=== PATIENT | male | born 1940 | race Caucasian/White ===

== ENCOUNTER 2020-04-27 16:04 | Observation (INO) ==
[2020-04-27] MEDS ORDERED: NS 1000 ML 1,000 ML ONE ×2 (16:13→17:33)
[2020-04-27] MEDS ORDERED: NS 1000 ML 1,000 ML IV ONE ×3 (16:27→17:32)
[2020-04-27 16:45] LABS: BASOPHILS % (AUTO) 0.4 % (0.2-1.0); HEMATOCRIT 39.9 % (42.0-54.0); LYMPHOCYTES # (AUTO) 0.7 X10^3/uL (1.3-2.9); LYMPHOCYTES % (AUTO) 11.9 % (21.0-51.0); MEAN CORPUSCULAR HEMOGLOBIN 29.1 pg (27.0-34.0); MEAN CORPUSCULAR HGB CONC 35.1 g/dL (33.0-35.0); MEAN CORPUSCULAR VOLUME 82.9 fL (80.0-100.0); MEAN PLATELET VOLUME 9.9 fL (7.4-11.0); MONOCYTES # (AUTO) 0.6 x10^3/uL (0.3-0.8); MONOCYTES % (AUTO) 11.5 % (0.0-13.0); NEUTROPHILS # (AUTO) 4.2 x10^3/uL (2.2-4.8); NEUTROPHILS % (AUTO) 76.2 % (42.0-75.0); PLATELET COUNT 140 X10^3/uL (150.0-450.0); RED BLOOD COUNT 4.82 X10^6/uL (4.7-6.0); RED CELL DISTRIBUTION WIDTH 12.4 % (11.6-16.5); WHITE BLOOD COUNT 5.6 X10^3/uL (3.6-10.0)
[2020-04-27 16:48] LABS: ALBUMIN 3.3 g/dL (3.4-5.0); CALCIUM 9.2 mg/dL (8.5-10.1); CARBON DIOXIDE 26.2 mmol/L (21-32); COR CA(FOR HYPOALB) 9.8 mg/dL (8.5-10.1); CREATININE 2.02 mg/dL (0.70-1.30); TOTAL PROTEIN 7.3 g/dL (6.4-8.2)
--- NOTE | 2020-04-27 16:48 | RAD ---
HISTORYWeakness and feverSTUDYPortable AP chestCOMPARISONNoneFINDINGSThe heart is not significantly enlarged. Sternal wires are present. The left lung is clear. There is suggestion of an ill-defined infiltrate in the right lower lobe. No lobar consolidation, edema or pleural fluid demonstrated.IMPRESSIONSuspect right lower lobe infiltrate/localized pneumonia. Follow-up suggested.Electronically signed by: MICHELLE GARCIA (Apr 27, 2020 16:46:46)
[2020-04-27 17:03] LABS: CKMB % 2.5 % (<4); CREATINE KINASE 40 Units/L (39-308); CREATINE KINASE MB < 1.0 ng/mL (0-4.0); TROPONIN I 0.02 ng/mL (0-1.5)
[2020-04-27 19:16] LABS: ALBUMIN 2.7 g/dL (3.4-5.0); CALCIUM 8.4 mg/dL (8.5-10.1); CARBON DIOXIDE 26.9 mmol/L (21-32); COR CA(FOR HYPOALB) 9.4 mg/dL (8.5-10.1); CREATININE 1.88 mg/dL (0.70-1.30); TOTAL PROTEIN 6.1 g/dL (6.4-8.2)
--- NOTE | 2020-04-27 20:25 | DR.DIZZY ---
HPI Time seen Time Seen by Provider: 04/27/20 18:56 PCP Primary Care Physician: YAIMA HPI Comment HPI Comment: According to family pt was exposed to covid 19 . pos. Pt himself was tested yesterday results pending .Developed body ache dizziness and fatigue associated with diarrhea today with chills. Pt brought to ER for evaluation Complaint Chief Complaint:: PT C/O WEAKNESS, DIARRHEA, AND FEVER FOR THE PAST 3 DAYS. PT'S SON STATES HIS TESTED POSITIVE FOR COVID 19 YESTERDAY. PT WAS TESTED YESTERDAY AT OUR FACILITY. SON STATES PT WAS GIVEN TYLENOL 1000MG PO 2 HOURS SECURED ENTRANCE MONITOR FOR A TEMP.- COVID-19 Coronavirus risk:travel/contact w/high risk person: Yes Has patient experienced Coronavirus symptoms: Yes Coronavirus symptoms experienced: Fever Source History Provided: Patient Mode of Arrival Mode of Arrival: EMS Timing Onset of Chief Complaint: 04/24/20 Context Stroke Symptoms: None PMH PMH Past Medical History: Yes Past Medical History: Diabetes, Hypertension and Kidney Stones Past Surgical History: Yes Surgical History: Appendectomy, CABG/Valve Surgery and Lithotripsy Family History History of Family Medical Conditions: Yes Family Medical History: Diabetes Mellitus, Coronary Artery Disease and Heart Failure Social History Does any household member use tobacco: No Alcohol Use: None Do you use any recreational Drugs:: No Lives With: Family Lives Where: Home Travel Risk Coronavirus risk:travel/contact w/high risk person: Yes Has patient experienced Coronavirus symptoms: Yes Coronavirus symptoms experienced: Fever Infectious screening In the last 2 months have you had wt loss of >10#?: NO Have you had fever, night sweats or hemotysis?: No Have you traveled outside the country in the last 6 months?: No Isolation: Droplet ROS Review of Systems Constitutional: Chills and Fever Eyes: No Symptoms Reported ENTM: No Symptoms Reported Cardiovascular: No Symptoms Reported Gastrointestinal/Abdominal: Diarrhea Neurological: No Symptoms Reported, Weakness and Dizziness Musculoskeletal: No Symptoms Reported Integumentary: Dryness Psychiatric: No Symptoms Reported and Other (hard of hearing ) PE Vital Signs Vitals: Temperature 97.5 F Pulse Rate 64 Respiratory Rate 18 Blood Pressure [Right Arm] 143/64 Blood Pressure 140/65 O2 Sat by Pulse Oximetry 96 General Limitations: Other (hard of hearing ) General Appearance: Alert Head Head Exam: Normal Inspection, Atraumatic and Normocephalic Eyes Eye exam: Normal Appearance and PERRL ENT ENT Exam: Mucous Membranes Dry Neck Neck Exam: Full ROM Chest Chest Inspection: Normal Inspection Respiratory Respiratory Exam: Bilateral: Crackles Cardiovascular Cardiovascular Exam: +S1 and +S2 Abdominal Exam Abdominal Exam: Normal Bowel Sounds and Soft Extremeties Extremities Exam: Normal Inspection and Full ROM Back Back Exam: Normal Inspection Neurologic Neurological Exam: Alert and Oriented X3 Skin Skin Exam: Warm MDM Differential Diagnosis Differential Diagnosis: Other (suspected covid19,dizziness,dehydration,hard of hearing ,chills and fever ,History of CAD) COURSE Treatment Treatment: labs,EKG, cxr, labs ROR Labs Reviewed Laboratory Results Reviewed?: Yes Result Diagrams: 04/27/20 16:14 04/27/20 18:29 Laboratory: WBC 5.6 X10^3/uL (3.6-10.0) 04/27/20 16:14 RBC 4.82 X10^6/uL (4.7-6.0) 04/27/20 16:14 Hgb 14.0 g/dL (13.5-18.0) 04/27/20 16:14 Hct 39.9 % (42.0-54.0) L 04/27/20 16:14 MCV 82.9 fL (80.0-100.0) 04/27/20 16:14 MCH 29.1 pg (27.0-34.0) 04/27/20 16:14 MCHC 35.1 g/dL (33.0-35.0) H 04/27/20 16:14 RDW 12.4 % (11.6-16.5) 04/27/20 16:14 Plt Count 140 X10^3/uL (150.0-450.0) L 04/27/20 16:14 MPV 9.9 fL (7.4-11.0) 04/27/20 16:14 Neut % (Auto) 76.2 % (42.0-75.0) H 04/27/20 16:14 Lymph % (Auto) 11.9 % (21.0-51.0) L 04/27/20 16:14 [place] % (Auto) 11.5 % (0.0-13.0) 04/27/20 16:14 Eos % (Auto) 0.0 % (0.9-2.9) L 04/27/20 16:14 Baso % (Auto) 0.4 % (0.2-1.0) 04/27/20 16:14 Neut # (Auto) 4.2 x10^3/uL (2.2-4.8) 04/27/20 16:14 Lymph # (Auto) 0.7 X10^3/uL (1.3-2.9) L 04/27/20 16:14 [place] # (Auto) 0.6 x10^3/uL (0.3-0.8) 04/27/20 16:14 Eos # (Auto) 0.0 x10^3/uL (0.0-0.2) 04/27/20 16:14 Baso # (Auto) 0.0 X10^3/uL (0.0-0.1) 04/27/20 16:14 Absolute Nucleated RBC 0.1 /100WBC 04/27/20 16:14 Sodium 130 mmol/L (136-145) L 04/27/20 18:29 Corrected Sodium 132 mmol/L (136-145) L 04/27/20 18:29 Potassium 3.2 mmol/L (3.5-5.1) L 04/27/20 18:29 Chloride 94 mmol/L (98-107) L 04/27/20 18:29 Carbon Dioxide 26.9 mmol/L (21-32) 04/27/20 18:29 BUN 30 mg/dL (7-18) H 04/27/20 18:29 Creatinine 1.88 mg/dL (0.70-1.30) H 04/27/20 18:29 Est GFR (MDRD) Af Amer 45 (>60) L 04/27/20 18:29 Est GFR (MDRD) Non-Af 37 (>60) L 04/27/20 18:29 Glucose 199 mg/dL (65-99) H 04/27/20 18:29 Lactic Acid 1.9 mmol/L (0.4-2.0) 04/27/20 18:29 Calcium 8.4 mg/dL (8.5-10.1) L 04/27/20 18:29 Corrected Calcium 9.4 mg/dL (8.5-10.1) 04/27/20 18:29 Ferritin 621 ng/mL (26-388) H 04/27/20 16:14 Total Bilirubin 0.70 mg/dL (0.2-1.0) 04/27/20 18:29 AST 30 Units/L (15-37) 04/27/20 18:29 ALT 26 Units/L (12-78) 04/27/20 18:29 Alkaline Phosphatase 59 Units/L (46-116) 04/27/20 18:29 Creatine Kinase 40 Units/L (39-308) 04/27/20 16:14 CK-MB (CK-2) < 1.0 ng/mL (0-4.0) 04/27/20 16:14 CK/CKMB % Calc 2.5 % (<4) 04/27/20 16:14 Troponin I 0.02 ng/mL (0-1.5) 04/27/20 16:14 C-Reactive Protein 72.20 mg/L (0-3.0) H 04/27/20 16:14 Total Protein 6.1 g/dL (6.4-8.2) L 04/27/20 18:29 Albumin 2.7 g/dL (3.4-5.0) L 04/27/20 18:29 Globulin 3.4 g/dL (2.5-4.5) 04/27/20 18:29 Albumin/Globulin Ratio 0.8 Ratio (1.1-2.1) L 04/27/20 18:29 Amylase 74 Units/L (25-115) 04/27/20 16:14 Lipase 200 Units/L (73-393) 04/27/20 16:14 Other Results Comments: hyponatremia, acute renal failure ,pneumonia most likely due to covid ,left bundle branch block cardiac enzymes neg Opioid Opioid Risk Tool Age ([place] if 16-45): No History of Preadolescent Sexual Abuse: No Total: 0 Total Score Risk Category: Low Risk Copyright: Con BERRY predicting aberrant behaviors Diagnosis Discharge Problem: Acute dehydration, Acute hyponatremia, Acute hypokalemia, Acute renal failure (ARF), Suspected COVID-19 virus infection, Pneumonia, Hard of hearing
[2020-04-27] MEDS ORDERED: ZINC SULFATE PO SCH (21:00)
[2020-04-27] MEDS ORDERED: REMDESIVIR (INVESTIGATIONAL DRUG GS-5734) 200 MG in NS 250 ML IV 250 ML IV SCH (21:00)
[2020-04-27] MEDS ORDERED: ASCORBIC ACID INJ MULTI-DOSE VIAL 1,500 MG in NS 100 ML IV 100 ML IV SCH (21:00)
[2020-04-27] MEDS ORDERED: NS + KCL 20 MEQ/L 1,000 ML IV SCH (21:00)
[2020-04-27] MEDS ORDERED: LOVENOX INJ 30 MG SYR SC SCH (21:00)
[2020-04-27] MEDS ORDERED: PLAQUENIL PO SCH (21:00)
[2020-04-27] MEDS ORDERED: LOVENOX INJ 30 MG SYR SC ONE (21:34)
[2020-04-28 01:09] VITALS: BMI 25.9
[2020-04-28 05:39] LABS: BASOPHILS % (AUTO) 0.4 % (0.2-1.0); EOSINOPHILS % (AUTO) 0.3 % (0.9-2.9); HEMOGLOBIN 12.7 g/dL (13.5-18.0); LYMPHOCYTES # (AUTO) 0.6 X10^3/uL (1.3-2.9); LYMPHOCYTES % (AUTO) 23.1 % (21.0-51.0); MEAN CORPUSCULAR HEMOGLOBIN 29.6 pg (27.0-34.0); MEAN CORPUSCULAR HGB CONC 36.3 g/dL (33.0-35.0); MEAN CORPUSCULAR VOLUME 81.7 fL (80.0-100.0); MEAN PLATELET VOLUME 10.1 fL (7.4-11.0); MONOCYTES # (AUTO) 0.3 x10^3/uL (0.3-0.8); MONOCYTES % (AUTO) 12.8 % (0.0-13.0); NEUTROPHILS # (AUTO) 1.7 x10^3/uL (2.2-4.8); NEUTROPHILS % (AUTO) 63.4 % (42.0-75.0); PLATELET COUNT 109 X10^3/uL (150.0-450.0); RED BLOOD COUNT 4.28 X10^6/uL (4.7-6.0); RED CELL DISTRIBUTION WIDTH 12.5 % (11.6-16.5); WHITE BLOOD COUNT 2.6 X10^3/uL (3.6-10.0)
[2020-04-28 05:45] LABS: ALANINE AMINOTRANSFERASE 24 Units/L (12-78); ALBUMIN 2.8 g/dL (3.4-5.0); ALKALINE PHOSPHATASE 58 Units/L (46-116); ASPARTATE AMINO TRANSFERASE 26 Units/L (15-37); BLOOD UREA NITROGEN 29 mg/dL (7-18); CALCIUM 8.3 mg/dL (8.5-10.1); CARBON DIOXIDE 26.7 mmol/L (21-32); CHLORIDE 94 mmol/L (98-107); COR CA(FOR HYPOALB) 9.3 mg/dL (8.5-10.1); COR NA(FOR HYPERGLY) 132 mmol/L (136-145); SODIUM 131 mmol/L (136-145); TOTAL PROTEIN 6.4 g/dL (6.4-8.2); TROPONIN I < 0.02 ng/mL (0-1.5); eGFR NON BLACK RACES 44 (>60)
[2020-04-28] MEDS ORDERED: VITAMIN A PO SCH (09:00)
[2020-04-28] MEDS ORDERED: VITAMIN D (1.25MG) PO SCH (09:00)
[2020-04-28] MEDS ORDERED: DECADRON TAB PO SCH (09:00)
--- NOTE | 2020-04-28 09:10 | DR.H&P ---
H&P History & Physical for Day of: H&P Date: 04/28/20 Chief Complaint Chief Complaint: Weakness, Diarrhea, Allergies Allergies Allergy/AdvReac Type Severity Reaction Status Date / Time No Known Drug Allergies Allergy Verified 05/22/19 00:08 History of Present Illness History of Present Illness: Pt is a 80 yo m pmhx HTN, DMT2, presenting after having fatigue, dizziness, body aches, and diarrhea for the past 2 days. He stated he was exposed to his that recently tested positive for COVID19. He has a test pending from [facility] that was collected on 04/26. Labs/imaging: Wbc 2.6, Hgb 12.7, Plt 109, Na 131, K 3.2, Cr 1.8>1.6, Gluc 136, Magnesium 1.4, CRP 59, CXR: Suspect right lower lobe infiltrate/localized pneumonia. Pt with multiple electrolyte abnormalities, will replete per protocol. He has UMA, continue IVF and hold nephrotoxic agents. Pneumonia seen on CXR, start on antibiotics, Rocephin+ Azithromycin. Will start on immune support supplements, IV solumedrol 80mg q12, and restart home medications. Continue to monitor and follow up labs/imaging in the morning. Past Medical History Past Medical History: Diabetes, Hypertension and Kidney Stones Past Surgical History Surgical History: Appendectomy and CABG/Valve Surgery Family History Family Medical History: Diabetes Mellitus, Coronary Artery Disease and Heart Failure Social History Does patient currently use any type of tobacco product: No Does any household member use tobacco: No Alcohol Use: None Medications Home Medications: No Known Drug Allergies Allergy (Verified 05/22/19 00:08) CONTINUE taking the following medications carvedilol 25 mg PO BID 04/27/20 [History] clopidogrel 75 mg PO DAILY 04/27/20 [History] lisinopril 10 mg PO DAILY 04/27/20 [History] omeprazole 20 mg PO DAILY 04/27/20 [History] potassium chloride 10 meq PO HS 04/27/20 [History] pravastatin 80 mg PO DAILY 04/27/20 [History] Labs Result Diagrams: 04/28/20 04:50 04/28/20 04:50 Labs: Laboratory WBC 2.6 X10^3/uL (3.6-10.0) L 04/28/20 04:50 RBC 4.28 X10^6/uL (4.7-6.0) L 04/28/20 04:50 Hgb 12.7 g/dL (13.5-18.0) L 04/28/20 04:50 Hct 35.0 % (42.0-54.0) L 04/28/20 04:50 MCV 81.7 fL (80.0-100.0) 04/28/20 04:50 MCH 29.6 pg (27.0-34.0) 04/28/20 04:50 MCHC 36.3 g/dL (33.0-35.0) H 04/28/20 04:50 RDW 12.5 % (11.6-16.5) 04/28/20 04:50 Plt Count 109 X10^3/uL (150.0-450.0) L 04/28/20 04:50 MPV 10.1 fL (7.4-11.0) 04/28/20 04:50 Neut % (Auto) 63.4 % (42.0-75.0) 04/28/20 04:50 Lymph % (Auto) 23.1 % (21.0-51.0) 04/28/20 04:50 [place] % (Auto) 12.8 % (0.0-13.0) 04/28/20 04:50 Eos % (Auto) 0.3 % (0.9-2.9) L 04/28/20 04:50 Baso % (Auto) 0.4 % (0.2-1.0) 04/28/20 04:50 Neut # (Auto) 1.7 x10^3/uL (2.2-4.8) L 04/28/20 04:50 Lymph # (Auto) 0.6 X10^3/uL (1.3-2.9) L 04/28/20 04:50 [place] # (Auto) 0.3 x10^3/uL (0.3-0.8) 04/28/20 04:50 Eos # (Auto) 0.0 x10^3/uL (0.0-0.2) 04/28/20 04:50 Baso # (Auto) 0.0 X10^3/uL (0.0-0.1) 04/28/20 04:50 Absolute Nucleated RBC 1.6 /100WBC 04/28/20 04:50 Sodium 131 mmol/L (136-145) L 04/28/20 04:50 Corrected Sodium 132 mmol/L (136-145) L 04/28/20 04:50 Potassium 3.2 mmol/L (3.5-5.1) L 04/28/20 04:50 Chloride 94 mmol/L (98-107) L 04/28/20 04:50 Carbon Dioxide 26.7 mmol/L (21-32) 04/28/20 04:50 BUN 29 mg/dL (7-18) H 04/28/20 04:50 Creatinine 1.60 mg/dL (0.70-1.30) H 04/28/20 04:50 Est GFR (MDRD) Af Amer 54 (>60) L 04/28/20 04:50 Est GFR (MDRD) Non-Af 44 (>60) L 04/28/20 04:50 Glucose 136 mg/dL (65-99) H 04/28/20 04:50 Lactic Acid 1.9 mmol/L (0.4-2.0) 04/27/20 18:29 Calcium 8.3 mg/dL (8.5-10.1) L 04/28/20 04:50 Corrected Calcium 9.3 mg/dL (8.5-10.1) 04/28/20 04:50 Ferritin 621 ng/mL (26-388) H 04/27/20 16:14 Total Bilirubin 0.60 mg/dL (0.2-1.0) 04/28/20 04:50 AST 26 Units/L (15-37) 04/28/20 04:50 ALT 24 Units/L (12-78) 04/28/20 04:50 Alkaline Phosphatase 58 Units/L (46-116) 04/28/20 04:50 Creatine Kinase 40 Units/L (39-308) 04/27/20 16:14 CK-MB (CK-2) < 1.0 ng/mL (0-4.0) 04/27/20 16:14 CK/CKMB % Calc 2.5 % (<4) 04/27/20 16:14 Troponin I < 0.02 ng/mL (0-1.5) 04/28/20 04:50 C-Reactive Protein 72.20 mg/L (0-3.0) H 04/27/20 16:14 Total Protein 6.4 g/dL (6.4-8.2) 04/28/20 04:50 Albumin 2.8 g/dL (3.4-5.0) L 04/28/20 04:50 Globulin 3.6 g/dL (2.5-4.5) 04/28/20 04:50 Albumin/Globulin Ratio 0.8 Ratio (1.1-2.1) L 04/28/20 04:50 Amylase 74 Units/L (25-115) 04/27/20 16:14 Lipase 200 Units/L (73-393) 04/27/20 16:14 Review of Systems Constitutional: See HPI and Weakness Eyes: No Symptoms Reported ENT: No Symptoms Reported Respiratory: Cough and Sputum Cardiovascular: No Symptoms Reported Gastrointestinal: Nausea and Diarrhea Genitourinary: No Symptoms Reported Musculoskeletal: No Symptoms Reported Skin: No Symptoms Reported Neurological: No Symptoms Reported Physical Exam Vital Signs: Temperature 98.9 F Pulse Rate [Right] 84 Pulse Rate 66 Respiratory Rate 16 Blood Pressure [Right Arm] 165/77 Blood Pressure 141/68 O2 Sat by Pulse Oximetry 95 Oriented: Normal Eyes: Normal Ear: Normal Nose: Normal Respiratory: Diminished Throughout and RLL Rales Cardiovascular: Normal : Normal Auscultation: Bowel Sounds: Normal Palpation: Normal Tenderness: Normal Skin: Normal Musculoskeletal: Normal Psychiatric: Normal Mood Description: Calm Speech Pattern: Clear Assessment/Plan (1) Pneumonia: Status: Acute Plan: COVID19 pending Rocephin+Azithromycin (2) Acute dehydration: Status: Acute Plan: IVF (3) Acute hyponatremia: Status: Acute (4) Acute hypokalemia: Status: Acute (5) Acute renal failure (ARF): Status: Acute Plan: Hold nephrotoxic medications. IVF, trend creatinine Review H&P Reviewed: Yes Patient was examined?: Yes
[2020-04-28] MEDS ORDERED: POTASSIUM CHL 60 MEQ/NS 0.45% 500 ML IV PRN (10:51)
[2020-04-28] MEDS ORDERED: POTASSIUM CHLORIDE LIQ 20 MEQ UDC PO PRN (10:51)
[2020-04-28] MEDS ORDERED: K-DUR TAB 20 MEQ PO PRN (10:51)
[2020-04-28] MEDS ORDERED: KLOR-CON PO PRN (10:51)
[2020-04-28] MEDS ORDERED: K-RIDER 10 MEQ/NS 100 ML 10 MEQ/100 ML BAG IV PRN (10:51)
[2020-04-28] MEDS ORDERED: POTASSIUM CHL 40 MEQ/NS 0.45% 500 ML IV PRN (10:51)
[2020-04-28] MEDS ORDERED: MICRO K EXTEN CAP 10 MEQ PO PRN (10:51)
[2020-04-28] MEDS ORDERED: ZESTRIL TAB 10 MG PO SCH (11:00)
[2020-04-28] MEDS: NS 1000 ML 1,000 ML IV SCH (11:08)
[2020-04-28] MEDS: ROCEPHIN VIAL 1 GRAM 1 G in NS 100 ML IV + SPIKE MINIBAG* 100 ML IV SCH (11:08)
[2020-04-28] MEDS: ZITHROMAX INJ 500 MG VIAL 500 MG in D5W 250 ML IV 250 ML IV SCH (11:08)
[2020-04-28] MEDS: LOVENOX INJ 40 MG SYR SC SCH (11:09)
[2020-04-28] MEDS: TAB-A-VITE PO SCH (11:10)
[2020-04-28] MEDS: VITAMIN C PO SCH (11:10)
[2020-04-28] MEDS: VITAMIN D3 125 mcg (5,000 UNITS) PO SCH (11:11)
[2020-04-28] MEDS: ZINC SULFATE PO SCH (11:11)
[2020-04-28] MEDS: PROSCAR PO SCH (11:11)
[2020-04-28] MEDS: COREG TAB 25 MG PO SCH ×2 (11:12→21:46)
[2020-04-28] MEDS: PriLOSEC PO SCH (11:12)
[2020-04-28] MEDS: PLAVIX PO SCH (11:12)
[2020-04-28] MEDS ORDERED: CHLORTHALIDONE PO SCH (11:30)
[2020-04-28] MEDS: SOLU-Medrol 125 MG VIAL IVP SCH ×2 (14:15→23:40)
[2020-04-28] MEDS ORDERED: RESTORIL CAP 15 MG PO ONE (20:16)
[2020-04-28] MEDS ORDERED: HumuLIN R ONE (21:06)
[2020-04-28] MEDS: RESTORIL CAP 15 MG PO PRN (21:46)
[2020-04-28] MEDS: MICRO K EXTEN CAP 10 MEQ PO SCH (21:47)
[2020-04-28] MEDS: FLOMAX PO SCH (21:47)
[2020-04-28] MEDS: HumuLIN R SC PRN (22:35)
[2020-04-29] MEDS: NS 1000 ML 1,000 ML IV SCH ×2 (02:23→15:35)
[2020-04-29] MEDS: HumuLIN R SC PRN ×4 (05:51→21:14)
[2020-04-29 06:08] LABS: ALBUMIN 2.8 g/dL (3.4-5.0); CALCIUM 8.6 mg/dL (8.5-10.1); CARBON DIOXIDE 27.4 mmol/L (21-32); COR CA(FOR HYPOALB) 9.6 mg/dL (8.5-10.1); CREATININE 1.51 mg/dL (0.70-1.30); MAGNESIUM 1.5 mg/dL (1.7-2.9); TOTAL PROTEIN 6.5 g/dL (6.4-8.2)
--- NOTE | 2020-04-29 06:13 | RAD ---
HISTORYPNEUMONIA FOLLOW-UP, ACUTE RENAL FAILURE, COVID +STUDYCHEST, 1 [id number] view of the chestFINDINGSPost median sternotomy. Cardiac and mediastinal contours appear stable. Interval clearing of previously seen right lower lobe airspace disease. No pleural effusion or pneumothorax.IMPRESSIONInterval clearing of right lower lobe airspace disease.Electronically signed by: Marcelo Peraza (Apr 29, 2020 06:12:11)
[2020-04-29 06:17] LABS: BASOPHILS % (AUTO) 0.2 % (0.2-1.0); HEMATOCRIT 36.3 % (42.0-54.0); HEMOGLOBIN 12.8 g/dL (13.5-18.0); LYMPHOCYTES # (AUTO) 0.4 X10^3/uL (1.3-2.9); LYMPHOCYTES % (AUTO) 15.5 % (21.0-51.0); MEAN CORPUSCULAR HEMOGLOBIN 29.6 pg (27.0-34.0); MEAN CORPUSCULAR HGB CONC 35.2 g/dL (33.0-35.0); MEAN CORPUSCULAR VOLUME 84.1 fL (80.0-100.0); MEAN PLATELET VOLUME 10.1 fL (7.4-11.0); MONOCYTES # (AUTO) 0.2 x10^3/uL (0.3-0.8); MONOCYTES % (AUTO) 6.1 % (0.0-13.0); NEUTROPHILS % (AUTO) 78.2 % (42.0-75.0); PLATELET COUNT 119 X10^3/uL (150.0-450.0); RED BLOOD COUNT 4.32 X10^6/uL (4.7-6.0); RED CELL DISTRIBUTION WIDTH 12.4 % (11.6-16.5); WHITE BLOOD COUNT 2.6 X10^3/uL (3.6-10.0)
[2020-04-29] MEDS ORDERED: VITAMIN D3 125 mcg (5,000 UNITS) PO SCH (09:00)
[2020-04-29] MEDS ORDERED: VITAMIN A PO SCH (09:00)
[2020-04-29] MEDS: PREDNISONE TAB 20 MG PO SCH (09:39)
[2020-04-29] MEDS: ZITHROMAX INJ 500 MG VIAL 500 MG in D5W 250 ML IV 250 ML IV SCH (09:40)
[2020-04-29] MEDS: COREG TAB 25 MG PO SCH ×2 (09:41→21:04)
[2020-04-29] MEDS: PriLOSEC PO SCH (09:41)
[2020-04-29] MEDS: VITAMIN D3 125 mcg (5,000 UNITS) PO SCH (09:41)
[2020-04-29] MEDS: TAB-A-VITE PO SCH (09:42)
[2020-04-29] MEDS: VITAMIN C PO SCH (09:42)
[2020-04-29] MEDS: PROSCAR PO SCH (09:42)
[2020-04-29] MEDS: LOVENOX INJ 40 MG SYR SC SCH (09:43)
[2020-04-29] MEDS: ROCEPHIN VIAL 1 GRAM 1 G in NS 100 ML IV + SPIKE MINIBAG* 100 ML IV SCH (09:43)
[2020-04-29] MEDS: PLAVIX PO SCH (09:43)
[2020-04-29] MEDS: ZINC SULFATE PO SCH (09:47)
[2020-04-29] MEDS: PRAVACHOL PO SCH (10:00)
[2020-04-29] MEDS: MAGNESIUM SULFATE 1 GRAM/100 mL PREMIX 1 GM/100 ML BAG IV PRN ×2 (14:25→15:45)
[2020-04-29 15:09] LABS: CARBON DIOXIDE 24.4 mmol/L (21-32); CREATININE 1.49 mg/dL (0.70-1.30); MAGNESIUM 1.8 mg/dL (1.7-2.9)
--- NOTE | 2020-04-29 15:49 | PCM.PROG ---
Progress Note Progress Note for Day of Date of Exam: 04/29/20 Subjective Subjective: Pt is a 80 yo m pmhx HTN, DMT2, admitted for pneumonia(COVID19 pending). This morning he is feeling better. Labs/imaging: Wbc 2.6, Hgb 12.8, Plt 119, Na 129, K 3.3, Cr 1.6>1.49, Gluc 326, Magnesium 1.5, CXR: Interval clearing of right lower lobe airspace disease. Improvement in CXR and renal function, will increase IVF NS to 125ml/h, hold nephrotoxic agents. Replete magnesium and potassium. Continue antibiotics, Rocephin+ Azithromycin, immune support supplements, change IV solumedrol to oral prednisone 40mg. Continue to monitor and follow up labs/imaging in the morning. Past Medical Family Social History Past Med/Fam/Surg Hx: No changes since H&P Allergies: Allergies No Known Drug Allergies Allergy (Verified 05/22/19 00:08) Vital Signs and I&O's Vital Signs: Temperature 97.6 F Pulse Rate [Right] 68 Pulse Rate 66 Respiratory Rate 16 Blood Pressure [Right Arm] 165/74 Blood Pressure 141/68 O2 Sat by Pulse Oximetry 95 Intake and Output: Intake & Output 04/26/20 04/27/20 04/28/20 04/29/20 23:59 23:59 23:59 23:59 Intake Total 2650 / 2650 350 / 350 Output Total 225 / 225 550 / 550 Balance 2425 / 2425 -200 / -200 Physical Exam Oriented: Normal Eyes: Normal Ear: Normal Nose: Normal Respiratory: Right and Rales Cardiovascular: Normal : Normal Auscultation: Bowel Sounds: Normal Tenderness: Normal Skin: Normal Musculoskeletal: Normal Psychiatric: Normal Mood Description: Calm Speech Pattern: Clear and Appropriate Laboratory and Diagnostics Result Diagrams: 04/29/20 04:54 04/29/20 14:50 Labs: 04/27/20 14:14 Blood Blood Culture - Preliminary 04/27/20 18:29 Blood Blood Culture - Preliminary Laboratory WBC 2.6 X10^3/uL (3.6-10.0) L 04/29/20 04:54 RBC 4.32 X10^6/uL (4.7-6.0) L 04/29/20 04:54 Hgb 12.8 g/dL (13.5-18.0) L 04/29/20 04:54 Hct 36.3 % (42.0-54.0) L 04/29/20 04:54 MCV 84.1 fL (80.0-100.0) 04/29/20 04:54 MCH 29.6 pg (27.0-34.0) 04/29/20 04:54 MCHC 35.2 g/dL (33.0-35.0) H 04/29/20 04:54 RDW 12.4 % (11.6-16.5) 04/29/20 04:54 Plt Count 119 X10^3/uL (150.0-450.0) L 04/29/20 04:54 MPV 10.1 fL (7.4-11.0) 04/29/20 04:54 Neut % (Auto) 78.2 % (42.0-75.0) H 04/29/20 04:54 Lymph % (Auto) 15.5 % (21.0-51.0) L 04/29/20 04:54 [place] % (Auto) 6.1 % (0.0-13.0) 04/29/20 04:54 Eos % (Auto) 0.0 % (0.9-2.9) L 04/29/20 04:54 Baso % (Auto) 0.2 % (0.2-1.0) 04/29/20 04:54 Neut # (Auto) 2.0 x10^3/uL (2.2-4.8) L 04/29/20 04:54 Lymph # (Auto) 0.4 X10^3/uL (1.3-2.9) L 04/29/20 04:54 [place] # (Auto) 0.2 x10^3/uL (0.3-0.8) L 04/29/20 04:54 Eos # (Auto) 0.0 x10^3/uL (0.0-0.2) 04/29/20 04:54 Baso # (Auto) 0.0 X10^3/uL (0.0-0.1) 04/29/20 04:54 Absolute Nucleated RBC 0.2 /100WBC 04/29/20 04:54 Sodium 129 mmol/L (136-145) L 04/29/20 14:50 Corrected Sodium 134 mmol/L (136-145) L 04/29/20 14:50 Potassium 3.3 mmol/L (3.5-5.1) L 04/29/20 14:50 Chloride 94 mmol/L (98-107) L 04/29/20 14:50 Carbon Dioxide 24.4 mmol/L (21-32) 04/29/20 14:50 BUN 28 mg/dL (7-18) H 04/29/20 14:50 Creatinine 1.49 mg/dL (0.70-1.30) H 04/29/20 14:50 Est GFR (MDRD) Af Amer 58 (>60) L 04/29/20 14:50 Est GFR (MDRD) Non-Af 48 (>60) L 04/29/20 14:50 Glucose 326 mg/dL (65-99) H 04/29/20 14:50 Lactic Acid 1.9 mmol/L (0.4-2.0) 04/27/20 18:29 Calcium 9.0 mg/dL (8.5-10.1) 04/29/20 14:50 Corrected Calcium 9.6 mg/dL (8.5-10.1) 04/29/20 04:54 Magnesium 1.8 mg/dL (1.7-2.9) 04/29/20 14:50 Ferritin 621 ng/mL (26-388) H 04/27/20 16:14 Total Bilirubin 0.60 mg/dL (0.2-1.0) 04/29/20 04:54 AST 26 Units/L (15-37) 04/29/20 04:54 ALT 21 Units/L (12-78) 04/29/20 04:54 Alkaline Phosphatase 54 Units/L (46-116) 04/29/20 04:54 Creatine Kinase 40 Units/L (39-308) 04/27/20 16:14 CK-MB (CK-2) < 1.0 ng/mL (0-4.0) 04/27/20 16:14 CK/CKMB % Calc 2.5 % (<4) 04/27/20 16:14 Troponin I < 0.02 ng/mL (0-1.5) 04/28/20 04:50 C-Reactive Protein 60.30 mg/L (0-3.0) H 04/29/20 04:54 Total Protein 6.5 g/dL (6.4-8.2) 04/29/20 04:54 Albumin 2.8 g/dL (3.4-5.0) L 04/29/20 04:54 Globulin 3.7 g/dL (2.5-4.5) 04/29/20 04:54 Albumin/Globulin Ratio 0.8 Ratio (1.1-2.1) L 04/29/20 04:54 Amylase 74 Units/L (25-115) 04/27/20 16:14 Lipase 200 Units/L (73-393) 04/27/20 16:14 Plan (1) Pneumonia: Status: Acute Plan: COVID19 pending Rocephin+Azithromycin (2) Acute dehydration: Status: Acute Plan: IVF (3) Acute hyponatremia: Status: Acute (4) Acute hypokalemia: Status: Acute (5) Acute renal failure (ARF): Status: Acute Plan: Hold nephrotoxic medications. IVF, trend creatinine
[2020-04-29] MEDS: RESTORIL CAP 15 MG PO PRN (20:55)
[2020-04-29] MEDS: FLOMAX PO SCH (21:04)
[2020-04-29] MEDS: MICRO K EXTEN CAP 10 MEQ PO SCH (21:05)
[2020-04-30] MEDS ORDERED: VALIUM PO PRN (03:44)
[2020-04-30] MEDS ORDERED: VALIUM ONE (03:47)
[2020-04-30] MEDS: NS 1000 ML 1,000 ML IV SCH (05:42)
[2020-04-30 06:01] LABS: BASOPHILS % (AUTO) 0.1 % (0.2-1.0); HEMATOCRIT 39.2 % (42.0-54.0); HEMOGLOBIN 13.8 g/dL (13.5-18.0); LYMPHOCYTES # (AUTO) 0.3 X10^3/uL (1.3-2.9); LYMPHOCYTES % (AUTO) 4.4 % (21.0-51.0); MEAN CORPUSCULAR HEMOGLOBIN 30.4 pg (27.0-34.0); MEAN CORPUSCULAR HGB CONC 35.2 g/dL (33.0-35.0); MEAN CORPUSCULAR VOLUME 86.3 fL (80.0-100.0); MEAN PLATELET VOLUME 10.2 fL (7.4-11.0); MONOCYTES # (AUTO) 0.4 x10^3/uL (0.3-0.8); MONOCYTES % (AUTO) 6.2 % (0.0-13.0); NEUTROPHILS # (AUTO) 6.4 x10^3/uL (2.2-4.8); NEUTROPHILS % (AUTO) 89.3 % (42.0-75.0); PLATELET COUNT 158 X10^3/uL (150.0-450.0); RED BLOOD COUNT 4.54 X10^6/uL (4.7-6.0); RED CELL DISTRIBUTION WIDTH 12.8 % (11.6-16.5); WHITE BLOOD COUNT 7.2 X10^3/uL (3.6-10.0)
[2020-04-30 06:25] LABS: ALANINE AMINOTRANSFERASE 24 Units/L (12-78); ALBUMIN 3.2 g/dL (3.4-5.0); ALKALINE PHOSPHATASE 73 Units/L (46-116); ASPARTATE AMINO TRANSFERASE 24 Units/L (15-37); BLOOD UREA NITROGEN 26 mg/dL (7-18); CARBON DIOXIDE 25.5 mmol/L (21-32); CHLORIDE 96 mmol/L (98-107); COR CA(FOR HYPOALB) 9.6 mg/dL (8.5-10.1); COR NA(FOR HYPERGLY) 136 mmol/L (136-145); CREATININE 1.36 mg/dL (0.70-1.30); SODIUM 132 mmol/L (136-145); TOTAL PROTEIN 7.4 g/dL (6.4-8.2); eGFR NON BLACK RACES 54 (>60)
--- NOTE | 2020-04-30 08:14 | W.DIS.FURT ---
Summary of Discharge Discharge Summary of Date Date of Exam: 04/30/20 Admission Date Date of Admission: 04/27/20 Admission Diagnosis Hospital Course: Pt is a 80 yo m pmhx HTN, DMT2, admitted for pneumonia(COVID19 negative on 04/26), dehydration, acute renal failure. He received IVF, nephrotoxic medications were held, and his renal function improved, Cr trending down from 2.02>1.36. Electrolyte abnormalities were corrected. Labs/imaging: Wbc 7.2, Hgb 13.8, Plt 158, Na 136, K 3.7, Cr 1.6>1.49, Gluc 271, Pneumonia seen CXR also improved, showing interval clearing of right lower lobe airspace disease after receiving antibiotics, Rocephin+ Azithromycin. On day of discharge he is sitting in recliner comfortably, w/ labs normalized, and not requiring any supplemental O2. He was instructed to complete augmentin course and follow up w/ pcp in 3-5 days. Vital Signs: Vital Signs (72 hours) 04/27/20 16:05 04/27/20 16:27 04/27/20 16:30 Temperature 97.5 F L Pulse Rate 73 64 64 Pulse Rate [Right] Respiratory Rate 20 16 16 Blood Pressure 86/54 Blood Pressure [Right Arm] O2 Sat by Pulse Oximetry 96 94 L 93 L 04/27/20 16:45 04/27/20 17:00 04/27/20 17:01 Temperature Pulse Rate 62 64 63 Pulse Rate [Right] Respiratory Rate 21 20 19 Blood Pressure 119/58 142/63 Blood Pressure [Right Arm] O2 Sat by Pulse Oximetry 95 95 96 04/27/20 17:15 04/27/20 17:30 04/27/20 17:45 Temperature Pulse Rate 62 64 63 Pulse Rate [Right] Respiratory Rate 19 18 19 Blood Pressure 125/58 115/56 126/61 Blood Pressure [Right Arm] O2 Sat by Pulse Oximetry 94 L 92 L 96 04/27/20 18:00 04/27/20 18:15 04/27/20 18:30 Temperature Pulse Rate 66 64 66 Pulse Rate [Right] Respiratory Rate 21 18 18 Blood Pressure 128/63 137/63 141/66 Blood Pressure [Right Arm] O2 Sat by Pulse Oximetry 04/27/20 18:45 04/27/20 19:00 04/27/20 19:15 Temperature Pulse Rate 66 65 64 Pulse Rate [Right] Respiratory Rate 18 17 18 Blood Pressure 144/67 144/63 145/67 Blood Pressure [Right Arm] O2 Sat by Pulse Oximetry 04/27/20 19:30 04/27/20 19:45 04/27/20 20:00 Temperature Pulse Rate 65 64 63 Pulse Rate [Right] Respiratory Rate 18 20 17 Blood Pressure 142/64 137/65 128/61 Blood Pressure [Right Arm] O2 Sat by Pulse Oximetry 04/27/20 20:15 04/27/20 20:30 04/27/20 20:45 Temperature Pulse Rate 63 64 67 Pulse Rate [Right] Respiratory Rate 17 18 15 Blood Pressure 130/64 140/65 140/65 Blood Pressure [Right Arm] O2 Sat by Pulse Oximetry 04/27/20 21:00 04/27/20 21:15 04/27/20 21:30 Temperature Pulse Rate 67 70 71 Pulse Rate [Right] Respiratory Rate 13 18 16 Blood Pressure 130/57 150/72 149/66 Blood Pressure [Right Arm] O2 Sat by Pulse Oximetry 04/27/20 21:45 04/27/20 22:00 04/27/20 22:15 Temperature Pulse Rate 68 67 66 Pulse Rate [Right] Respiratory Rate 16 17 17 Blood Pressure 145/68 145/66 143/63 Blood Pressure [Right Arm] O2 Sat by Pulse Oximetry 93 L 94 L 04/27/20 22:30 04/27/20 22:45 04/27/20 22:58 Temperature Pulse Rate 64 64 Pulse Rate [Right] 69 Respiratory Rate 17 18 20 Blood Pressure 145/67 141/68 Blood Pressure [Right Arm] 141/68 O2 Sat by Pulse Oximetry 94 L 97 96 04/27/20 23:00 04/28/20 00:20 04/28/20 03:25 Temperature 97.5 F L 97.5 F L Pulse Rate 66 Pulse Rate [Right] 68 68 Respiratory Rate 18 20 18 Blood Pressure Blood Pressure [Right Arm] 164/74 152/69 O2 Sat by Pulse Oximetry 97 99 98 04/28/20 08:00 04/28/20 12:00 04/28/20 16:00 Temperature 98.9 F 98.6 F 99.4 F Pulse Rate Pulse Rate [Right] 84 94 H 79 Respiratory Rate 16 24 18 Blood Pressure Blood Pressure [Right Arm] 165/77 150/71 123/57 O2 Sat by Pulse Oximetry 95 95 96 04/28/20 20:00 04/28/20 23:51 04/29/20 03:51 Temperature 98.9 F 98.0 F 98 F Pulse Rate Pulse Rate [Right] 73 80 64 Respiratory Rate 20 20 20 Blood Pressure Blood Pressure [Right Arm] 139/63 128/80 134/63 O2 Sat by Pulse Oximetry 97 96 97 04/29/20 08:00 04/29/20 12:00 04/29/20 16:00 Temperature 97.5 F L 97.6 F 97.4 F L Pulse Rate Pulse Rate [Right] 69 68 65 Respiratory Rate 16 16 16 Blood Pressure Blood Pressure [Right Arm] 170/77 165/74 138/64 O2 Sat by Pulse Oximetry 97 95 97 04/29/20 20:00 04/30/20 00:00 04/30/20 04:00 Temperature 98 F 98.5 F 98.5 F Pulse Rate Pulse Rate [Right] 68 61 61 Respiratory Rate 20 21 21 Blood Pressure Blood Pressure [Right Arm] 136/68 127/63 127/63 O2 Sat by Pulse Oximetry 98 97 97 Labs: Laboratory Last Values WBC 7.2 X10^3/uL (3.6-10.0) 04/30/20 04:53 RBC 4.54 X10^6/uL (4.7-6.0) L 04/30/20 04:53 Hgb 13.8 g/dL (13.5-18.0) 04/30/20 04:53 Hct 39.2 % (42.0-54.0) L 04/30/20 04:53 MCV 86.3 fL (80.0-100.0) 04/30/20 04:53 MCH 30.4 pg (27.0-34.0) 04/30/20 04:53 MCHC 35.2 g/dL (33.0-35.0) H 04/30/20 04:53 RDW 12.8 % (11.6-16.5) 04/30/20 04:53 Plt Count 158 X10^3/uL (150.0-450.0) 04/30/20 04:53 MPV 10.2 fL (7.4-11.0) 04/30/20 04:53 Neut % (Auto) 89.3 % (42.0-75.0) H 04/30/20 04:53 Lymph % (Auto) 4.4 % (21.0-51.0) L 04/30/20 04:53 Owen % (Auto) 6.2 % (0.0-13.0) 04/30/20 04:53 Eos % (Auto) 0.0 % (0.9-2.9) L 04/30/20 04:53 Baso % (Auto) 0.1 % (0.2-1.0) L 04/30/20 04:53 Neut # (Auto) 6.4 x10^3/uL (2.2-4.8) H 04/30/20 04:53 Lymph # (Auto) 0.3 X10^3/uL (1.3-2.9) L 04/30/20 04:53 Owen # (Auto) 0.4 x10^3/uL (0.3-0.8) 04/30/20 04:53 Eos # (Auto) 0.0 x10^3/uL (0.0-0.2) 04/30/20 04:53 Baso # (Auto) 0.0 X10^3/uL (0.0-0.1) 04/30/20 04:53 Absolute Nucleated RBC 0.1 /100WBC 04/30/20 04:53 Sodium 132 mmol/L (136-145) L 04/30/20 04:53 Corrected Sodium 136 mmol/L (136-145) 04/30/20 04:53 Potassium 3.7 mmol/L (3.5-5.1) 04/30/20 04:53 Chloride 96 mmol/L (98-107) L 04/30/20 04:53 Carbon Dioxide 25.5 mmol/L (21-32) 04/30/20 04:53 BUN 26 mg/dL (7-18) H 04/30/20 04:53 Creatinine 1.36 mg/dL (0.70-1.30) H 04/30/20 04:53 Est GFR (MDRD) Af Amer > 60 (>60) 04/30/20 04:53 Est GFR (MDRD) Non-Af 54 (>60) L 04/30/20 04:53 Glucose 271 mg/dL (65-99) H 04/30/20 04:53 Lactic Acid 1.9 mmol/L (0.4-2.0) 04/27/20 18:29 Calcium 9.0 mg/dL (8.5-10.1) 04/30/20 04:53 Corrected Calcium 9.6 mg/dL (8.5-10.1) 04/30/20 04:53 Magnesium 1.8 mg/dL (1.7-2.9) 04/29/20 14:50 Ferritin 621 ng/mL (26-388) H 04/27/20 16:14 Total Bilirubin 0.60 mg/dL (0.2-1.0) 04/30/20 04:53 AST 24 Units/L (15-37) 04/30/20 04:53 ALT 24 Units/L (12-78) 04/30/20 04:53 Alkaline Phosphatase 73 Units/L (46-116) 04/30/20 04:53 Creatine Kinase 40 Units/L (39-308) 04/27/20 16:14 CK-MB (CK-2) < 1.0 ng/mL (0-4.0) 04/27/20 16:14 CK/CKMB % Calc 2.5 % (<4) 04/27/20 16:14 Troponin I < 0.02 ng/mL (0-1.5) 04/28/20 04:50 C-Reactive Protein 60.30 mg/L (0-3.0) H 04/29/20 04:54 Total Protein 7.4 g/dL (6.4-8.2) 04/30/20 04:53 Albumin 3.2 g/dL (3.4-5.0) L 04/30/20 04:53 Globulin 4.2 g/dL (2.5-4.5) 04/30/20 04:53 Albumin/Globulin Ratio 0.8 Ratio (1.1-2.1) L 04/30/20 04:53 Amylase 74 Units/L (25-115) 04/27/20 16:14 Lipase 200 Units/L (73-393) 04/27/20 16:14 Reason For Visit: DEHYDRATION, ACUTE RENAL FAILURE, POSSIBLE COVID19 Discharge Date Discharge Date: 04/30/20 Discharge Diagnosis All Active Problems (Updated 04/27/20 @ 20:38 by Cheikh Soto) Urinary tract stones (Acute) Nephrolithiasis (Acute) Kidney stone (Acute) Gall stone (Acute) Prostate enlargement (Acute) Hypertension (Acute) Acute dehydration (Acute) Acute hyponatremia (Acute) Acute hypokalemia (Acute) Acute renal failure (ARF) (Acute) Suspected COVID-19 virus infection (Acute) Pneumonia (Acute) Hard of hearing (Acute) Plan of Treatment: Continue with present treatment and follow up plan. Pt is to keep follow up appointment as instructed and take medications as ordered. Discharge Medications Discharge Medications: No Known Drug Allergies Allergy (Verified 05/22/19 00:08) CONTINUE taking the following medications carvedilol 25 mg PO BID 04/27/20 [History] clopidogrel 75 mg PO DAILY 04/27/20 [History] omeprazole 20 mg PO DAILY 04/27/20 [History] potassium chloride 10 meq PO HS 04/27/20 [History] pravastatin 80 mg PO DAILY 04/27/20 [History] New Prescriptions amoxicillin-pot clavulanate [Augmentin] 1 tab PO BID 5 Days #10 tab 04/30/20 [Rx] Discharge Disposition Discharge Disposition: Home Discharge Condition: Stable
[2020-04-30 10:19] VITALS: BP 138/89
[2020-04-30] MEDS: COREG TAB 25 MG PO SCH (10:20)
[2020-04-30] MEDS: ZITHROMAX INJ 500 MG VIAL 500 MG in D5W 250 ML IV 250 ML IV SCH (10:20)
[2020-04-30] MEDS: VITAMIN D3 125 mcg (5,000 UNITS) PO SCH (10:21)
[2020-04-30] MEDS: TAB-A-VITE PO SCH (10:21)
[2020-04-30] MEDS: ROCEPHIN VIAL 1 GRAM 1 G in NS 100 ML IV + SPIKE MINIBAG* 100 ML IV SCH (10:21)
[2020-04-30] MEDS: ZINC SULFATE PO SCH (10:21)
[2020-04-30] MEDS: VITAMIN C PO SCH (10:21)
[2020-04-30] MEDS: PriLOSEC PO SCH (10:22)
[2020-04-30] MEDS: PREDNISONE TAB 20 MG PO SCH (10:22)
[2020-04-30] MEDS: PROSCAR PO SCH (10:22)
[2020-04-30] MEDS: PRAVACHOL PO SCH (10:22)
[2020-04-30] MEDS: LOVENOX INJ 40 MG SYR SC SCH (10:23)
[2020-04-30] MEDS: PLAVIX PO SCH (10:23)
== END 2020-04-30 12:10 | disposition home or self-care (01) ==
LOC: ER 16:04 → MED/SURG 16:04
PROVIDERS: ADMIT Family Medicine; ATTEND Family Medicine
CPT/HCPCS: 36415; 71010; 71045; 80048; 80053; 82150; 82550; 82553; 82728; 83605; 83690; 83735; 84484; 85025; 86140; 87040; 93005; 94760; 96365; 96367; 99284; A4222; G0378; J0456; J0696; J1650; J1815; J2930; J3475; J7030; J7050; J7060; J7512; S0138